=== PATIENT | male | born 1960 | race Caucasian/White ===

== ENCOUNTER → 2018-10-25 | Outpatient (CLI) | payer OTHER ==
[~2018-10-25] VITALS: Ht 172.7 cm; Wt 117.9 kg
[~2018-10-25] MED LIST: ACETAMINOPHEN325 MG PO; ACTOS 30 MG TAB30 MG PO; ADVAIR HFA 230M12 GM INH; AGGRENOX 25 MG1 EACH PO; CLARITIN10 M2 PO; CLEOCIN HCL150 MG PO; COLACE100 MG PO; LANTUS100 UNIT/M SUBQ; LANTUSSOLASTAR SUBQ; LEVAQUIN 500 M500 M4 PO; LIPITOR 20 MG T20 M1 PO; MILK OF MA2400 MG/10 PO; MS CONTIN15 MG PO; NEURONTIN 300300 M1 PO; NORVASC5 MG PO; PEPCID20 MG PO; PERCOCET 10-321 EACH PO; PRADAXA150 MG PO; PROBIOTIC1 EAC1 PO; SPIRIVA INH; TANZEUM50 MG/0.5 SQ; TRICOR145 MG PO; VELTASSA8.4 GM PO; ZANTAC 150MG T150 MG PO; ZYRTEC10 M2 PO
[2018-10-25 06:54] VITALS: BP 136/80
[2018-10-25 07:18] LABS: HEMATOCRIT 48.5 % (42.0-52.0); HEMOGLOBIN 15.9 gm/dL (14.0-18.0); MCH 31.1 pg (26.0-34.0); MCHC 32.7 g/dL (28.0-37.0); RBC 5.11 mil/uL (4.50-6.00); RDW 13.5 % (10.5-14.5); WBC 11.3 thou/uL (4.0-11.0)
[2018-10-25 07:30] LABS: CALCIUM 9.1 mg/dL (8.5-10.1); CREATININE 1.8 mg/dL (0.7-1.3); POTASSIUM 5.7 mmol/L (3.5-5.1)
--- NOTE | 2018-10-25 07:56 | EKG ---
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: Tha JONES : 1960 Requested By: Orlando Saleh Order Number: [id number] MD: Bandar Burnette Measurements Intervals [place] Rate: 72 P: 55 PA: 180 QRS: -52 QRSD: 87 T: 92 QT: 366 QTc: 401 Interpretive Statements Sinus rhythm Left anterior fascicular block Nonspecific T abnormalities, lateral leads Compared to ECG 02/15/2015 17:19:28 Sinus tachycardia no longer present Electronically Signed On 10-25-2018 7:56:28 SHIFT NURSE MANAGER by Bandar Burnette [email or web address] <ELECTRONICALLY SIGNED> By: Bandar Burnette MD, [facility] 10/25/18 0756 6 6 Bandar Burnette MD, [facility] /EPI
--- NOTE | 2018-10-25 08:10 | NUR ---
PATIENT EXPERIENCING NAUSEA, ZOFRAN ADMINISTERED AND COMFORT MEASURES GIVEN. PATIENT REPORTS FEELING BETTER.
--- NOTE | 2018-10-27 09:31 | CATHLAB ---
[facility] [employer] [place] [address] INVASIVE PROCEDURE REPORT Name: CITLALLI DICKSON Room #: REG [place]#: [id number] Admission: 10/25/18 Attend Phys: Orlando Saleh, Discharge: Date of : 62 Date of Service: 10/27/18 0931 Report #: [id number] THIS REPORT FOR: //name// APPROVED REPORT Study performed: 10/25/2018 07:17:06 Patient Details Patient Status: Out-Patient Room #: The patient is a 58 year-old male Event Personnel Orlando Saleh Animal Technician, Luis Arteaga RN RN, Darron Miller Brown, Roberta Monitor Procedures Performed Art Access - R femoral artery* Left Heart Cath w/or w/o Coronaries [id number] [facility] Abdominal Aortography 118252 Hemostasis w/ Mynx 13995 Initial Mod Sed Same Phys/QHP Gr5y 187461 Indication Chest pain Procedure Narrative The Right Groin^ was infiltrated with 1% Lidocaine subcutaneous anesthesia. A PINNACLE 6FR Sheath #[id number] sheath was inserted into the RFA^. Coronary angiography was performed using coronary diagnostic catheters. The right coronary system was accessed and visualized with a JR4 catheter. The left coronary system was accessed and visualized with a JL4 catheter. The left ventricle was accessed and visualized with a STR.PIG catheter. Left ventriculogram was performed in 30 degree projection. An aortogram of the ascending aortaabdominal aorta was performed. Closure device was deployed with a 6 Fr F6 MYNX. Hemostasis was obtained with manual pressure following sheath removal without any complications. The patient tolerated the procedure well and there were no complications associated with the procedure. There was no hematoma. Intraoperative Conscious Sedation Sedation start time: 0830 Case end Time: 0900 Fentanyl 50 mcg Versed 1 mg Fluoro Time: 2.16 minutes Dose: DAP 00675.70 cGycm2 460 mGy [facility] [employer] [place] [address] INVASIVE PROCEDURE REPORT Name: CITLALLI DICKSON Room #: [facility]#: [id number] Admission: 10/25/18 Attend Phys: Orlando Saleh, Discharge: Date of : 62 Date of Service: 10/27/18 0931 Report #: [id number] Contrast Type and Amount: Visipaque 70 ml Hemodynamics The aortic pressure is 144/89 mmHg with a mean of 45 mmHg. The left ventricular pressure is 138/20 mmHg with a mean of mmHg. The left ventricular end diastolic pressure is 35 mmHg. Conclusion #1 normal left ventricular size and systolic function EF 60-65% #2 abdominal aorta is intact no aneurysm is noted. Renal arteries and iliac system appeared to be widely patent #3 essentially normal coronary anatomy and a right dominant system. There is no evidence of any occlusive disease minimal plaquing is noted Recommendations and plan continue aggressive risk factor modification. Smoking cessation weight loss would certainly benefit. Follow-up with Dr. Renee/ [facility] <ELECTRONICALLY SIGNED> By: Orlando Saleh MD, FACC 10/27/18930 0 0 Orlando Saleh MD, FACC /INF
== END | disposition home or self-care (01) ==
LOC: CATH 06:34
PROVIDERS: Internal Medicine Cardiovascular Disease
DX: I25.10 Atherosclerotic heart disease of native coronary artery without angina pectoris (principal); I10 Essential (primary) hypertension; I48.91 Unspecified atrial fibrillation; E11.9 Type 2 diabetes mellitus without complications; J44.9 Chronic obstructive pulmonary disease, unspecified; E78.5 Hyperlipidemia, unspecified; F17.210 Nicotine dependence, cigarettes, uncomplicated; Z86.73 Personal history of transient ischemic attack (TIA), and cerebral infarction without residual deficits; Z98.890 Other specified postprocedural states; Z90.49 Acquired absence of other specified parts of digestive tract; Z82.49 Family history of ischemic heart disease and other diseases of the circulatory system; Z95.1 Presence of aortocoronary bypass graft; Z79.4 Long term (current) use of insulin; Z95.5 Presence of coronary angioplasty implant and graft; Z88.0 Allergy status to penicillin; Z88.8 Allergy status to other drugs, medicaments and biological substances; Z79.899 Other long term (current) drug therapy; Z79.01 Long term (current) use of anticoagulants